=== PATIENT | male | born 1975 | race Hispanic/Latino ===

== ENCOUNTER 2023-03-26 19:21 | Emergency (ER) | payer BC, OTHER ==
[~2023-03-26] VITALS: Ht 170.2 cm; Wt 87.1 kg
[2023-03-26] MEDS ORDERED: KETOROLAC 15MG/ML VIAL (15MG/ML) IM ONE (22:00)
[2023-03-26] MEDS ORDERED: CYCLOBENZAPRINE HCL 10 MG TABLET PO ONE (22:00)
[2023-03-26] MEDS ORDERED: LIDOCAINE 5% TOPICAL PATCH TP ONE (22:00)
[2023-03-26 23:00] VITALS: BP 124/72
[2023-03-26] MEDS ORDERED: KETO10TA2 PO (23:09)
[2023-03-26] MEDS ORDERED: CYCL-309 PO (23:09)
[2023-03-26] MEDS ORDERED: LIDO1ADH14 TP (23:09)
== END 2023-03-26 23:22 | disposition home or self-care (01) ==
LOC: EDH 19:21
DX: M62.830 Muscle spasm of back (principal); I10 Essential (primary) hypertension; E11.9 Type 2 diabetes mellitus without complications; E78.00 Pure hypercholesterolemia, unspecified; Z95.5 Presence of coronary angioplasty implant and graft; Z98.890 Other specified postprocedural states
CPT/HCPCS: 99284; 96372; J1885